=== PATIENT | male | born 1980 | race Caucasian/White ===

== ENCOUNTER 2017-08-09 16:11 | Inpatient (IN) | payer OTHER ==
[2017-08-09 18:19] LABS: ADD MAN DIFF? NO
[2017-08-09 18:21] LABS: BASO % 0 % (0-3); EOS # 0.2 x10^3/uL (0.0-0.7); EOS % 2 % (0-3); HEMATOCRIT 50.4 % (39.0-53.0); HEMOGLOBIN 17.9 g/dL (13.0-17.5); LYMPH # 2.1 x10^3/uL (1.0-4.8); LYMPH % 18 % (24-48); MEAN CORPUSCULAR HEMOGLOBIN 31 pg (25-35); MEAN CORPUSCULAR HGB CONC 36 g/dL (31-37); MEAN CORPUSCULAR VOLUME 88 fL (79-100); MONO # 0.5 x10^3/uL (0.0-1.1); MONO % 4 % (0-9); NEUT # 9.1 x10^3uL (1.8-7.7); NEUT % 76 % (31-73); PLATELET COUNT 290 x10^3/uL (140-400); RED BLOOD COUNT 5.74 x10^6/uL (4.30-5.70); RED CELL DISTRIBUTION WIDTH 13.8 % (11.5-14.5); WHITE BLOOD COUNT 11.9 x10^3/uL (4.0-11.0)
[2017-08-09 18:45] LABS: ALBUMIN 3.4 g/dL (3.4-5.0); ALK PHOS 114 U/L (46-116); ALT (SGPT) 33 U/L (16-63); ANION GAP 11 (6-14); AST (SGOT) 17 U/L (15-37); BLOOD UREA NITROGEN 9 mg/dL (8-26); CALCIUM 9.4 mg/dL (8.5-10.1); CARBON DIOXIDE 24 mmol/L (21-32); CHLORIDE 103 mmol/L (98-107); CKMB INDEX 0.3 % (0-4); CKMB MASS 1.2 ng/mL (0.0-3.6); CREATINE KINASE 422 U/L (39-308); CREATININE 1.1 mg/dL (0.7-1.3); DIRECT BILIRUBIN 0.1 mg/dL (0.0-0.2); GFR 74.5; GLUCOSE 175 mg/dL (70-99); SODIUM 138 mmol/L (136-145); TOTAL BILIRUBIN 0.4 mg/dL (0.2-1.0); TOTAL PROTEIN 7.3 g/dL (6.4-8.2)
[2017-08-09 18:48] LABS: POTASSIUM 1.5 mmol/L (3.5-5.1)
[2017-08-09] MEDS: POTASSIUM CHLORIDE 40 MEQ in IV NORMAL SALINE 500ML BAG 500 ML IV ×2 (19:08→23:38)
[2017-08-09] MEDS: POTASSIUM CHLORIDE 20 MEQ TABLET.ER. PO (19:16)
[2017-08-09] MEDS ORDERED: ONDANSETRON PF 4 MG/2 ML VIAL. IV (19:30)
[2017-08-09 20:19] LABS: BILIRUBIN,URINE NEGATIVE (NEG); CLARITY,URINE CLEAR; GLUCOSE,URINE NEGATIVE (NEG); NITRITE,URINE NEGATIVE (NEG); PROTEIN,URINE NEGATIVE (NEG-TRACE); UROBILINOGEN,URINE 0.2 mg/dL (0.2 mg/dL)
[2017-08-09 20:24] LABS: COLOR,URINE STRAW
[2017-08-09 20:25] LABS: RBC,URINE 0 /HPF (0-2)
[2017-08-09 20:26] LABS: BACTERIA,URINE 0 /HPF (0-FEW); SQUAMOUS EPITHELIAL CELL,UR OCC /LPF; WBC,URINE 0 /HPF (0-4)
[2017-08-09 20:29] LABS: AMPHETAMINE/METHAMPHETAMINE NEG (NEG); BARBITURATES NEG (NEG); BENZODIAZEPINES NEG (NEG); CANNABINOIDS NEG (NEG); COCAINE NEG (NEG); ETHANOL, URINE NEG (NEG); METHADONE NEG (NEG); OPIATES NEG (NEG); PHENCYCLIDINE NEG (NEG)
[2017-08-09] MEDS ORDERED: DEXTROSE 50% 25 GM / 50ML DISP.SYRIN. IV (21:00)
[2017-08-09] MEDS ORDERED: POTASSIUM CHLORIDE 20 MEQ TABLET.ER. PO ×2 (21:00→21:30)
[2017-08-09] MEDS ORDERED: NICOTINE POLACRILEX 2MG GUM PACKAGE of 12. BC (21:30)
[2017-08-09] MEDS ORDERED: ZOLPIDEM 5 MG TABLET. PO (21:30)
[2017-08-09] MEDS: MAGNESIUM SULFATE 2GM 50 ML IV (22:13)
[2017-08-09 23:42] LABS: TROPONINI 0.182 ng/mL (0.000-0.055)
[2017-08-10] MEDS: ASPIRIN 325 MG TABLET PO (00:10)
[2017-08-10] MEDS: POTASSIUM CHLORIDE 20 MEQ/15 ML ORAL LIQUID. PO ×2 (00:11→01:24)
[2017-08-10 05:27] LABS: ADD MAN DIFF? NO
[2017-08-10 05:37] LABS: BASO % 0 % (0-3); EOS # 0.2 x10^3/uL (0.0-0.7); EOS % 2 % (0-3); HEMOGLOBIN 15.5 g/dL (13.0-17.5); LYMPH # 2.7 x10^3/uL (1.0-4.8); LYMPH % 22 % (24-48); MEAN CORPUSCULAR HEMOGLOBIN 31 pg (25-35); MEAN CORPUSCULAR HGB CONC 35 g/dL (31-37); MEAN CORPUSCULAR VOLUME 88 fL (79-100); MONO # 0.7 x10^3/uL (0.0-1.1); MONO % 6 % (0-9); NEUT # 8.5 x10^3uL (1.8-7.7); NEUT % 70 % (31-73); PLATELET COUNT 270 x10^3/uL (140-400); RED BLOOD COUNT 5.02 x10^6/uL (4.30-5.70); RED CELL DISTRIBUTION WIDTH 13.8 % (11.5-14.5); WHITE BLOOD COUNT 12.1 x10^3/uL (4.0-11.0)
[2017-08-10 06:19] LABS: ANION GAP 8 (6-14); BLOOD UREA NITROGEN 7 mg/dL (8-26); CALCIUM 8.3 mg/dL (8.5-10.1); CARBON DIOXIDE 27 mmol/L (21-32); CHLORIDE 106 mmol/L (98-107); CHOLESTEROL 174 mg/dL (0-200); GFR 83.2; GLUCOSE 92 mg/dL (70-99); HDLC 38 mg/dL (40-60); LDLC 116 mg/dL (0-100); NON-HDL CHOLESTEROL 136 mg/dL (0-129); SODIUM 141 mmol/L (136-145); TRIGLYCERIDES 100 mg/dL (0-150); VLDLC 20 mg/dL (0-40)
[2017-08-10 06:20] LABS: CHOLESTEROL/HDL RATIO 4.6
[2017-08-10 06:22] LABS: POTASSIUM 1.9 mmol/L (3.5-5.1)
[2017-08-10 06:35] LABS: TROPONINI 0.218 ng/mL (0.000-0.055)
[2017-08-10] MEDS ORDERED: LOPERAMIDE 2 MG CAPSULE PO (07:45)
[2017-08-10] MEDS ORDERED: INSULIN LISPRO 300 UNITS/3 ML INSULN.PEN. SQ (08:00)
[2017-08-10] MEDS ORDERED: POTASSIUM CHLORIDE 20 MEQ TABLET.ER. PO (08:00)
[2017-08-10 08:23] LABS: VITAMIN-B12 228 pg/mL (247-911)
[2017-08-10 08:23] LABS: FOLATE 3.61 ng/ml (3.2-20.0)
[2017-08-10 08:52] LABS: MAGNESIUM 2.2 mg/dL (1.8-2.4)
[2017-08-10] MEDS: POTASSIUM CHLORIDE 20 MEQ TABLET.ER. PO ×5 (10:18→17:51)
[2017-08-10] MEDS: POTASSIUM CL 40MEQ D5-0.45NACL 1,000 ML IV ×2 (10:24→20:34)
[2017-08-10 13:39] LABS: POTASSIUM 2.7 mmol/L (3.5-5.1)
[2017-08-10 14:32] LABS: HEMOGLOBIN A1C 4.9 % (4.8-5.6)
[2017-08-10 14:32] LABS: MRSA BY PCR Negative (Negative)
[2017-08-10] MEDS: POTASSIUM CHLORIDE 10 MEQ TABLET.ER. PO (15:21)
[2017-08-10 22:15] LABS: SODIUM, URINE <60 mmol/L (Not Estab.); UR POTASSIUM 5.3 mmol/L (Not Estab.)
[2017-08-10 22:33] LABS: POC GLUCOSE 115 mg/dL (70-99)
[2017-08-10 23:12] LABS: C DIFF BY PCR Negative (Negative)
[2017-08-11] MEDS: POTASSIUM CL 40MEQ D5-0.45NACL 1,000 ML IV ×3 (06:56→20:19)
[2017-08-11 07:22] LABS: ANION GAP 12 (6-14); BLOOD UREA NITROGEN 6 mg/dL (8-26); CALCIUM 7.5 mg/dL (8.5-10.1); CARBON DIOXIDE 21 mmol/L (21-32); CHLORIDE 109 mmol/L (98-107); CREATININE 0.9 mg/dL (0.7-1.3); GFR 93.9; GLUCOSE 89 mg/dL (70-99); POTASSIUM 3.5 mmol/L (3.5-5.1); SODIUM 142 mmol/L (136-145)
[2017-08-11] MEDS: NICOTINE 21MG PATCH. TD (08:02)
[2017-08-11] MEDS: POTASSIUM CHLORIDE 20 MEQ TABLET.ER. PO ×3 (08:02→17:29)
[2017-08-11] MEDS ORDERED: ACETAMINOPHEN 500 MG TABLET PO (16:00)
[2017-08-11] MEDS ORDERED: ONDANSETRON ODT 4 MG TAB.RAPDIS. PO (16:00)
[2017-08-11] MEDS ORDERED: ONDANSETRON PF 4 MG/2 ML VIAL. IV (16:00)
[2017-08-11] MEDS ORDERED: diphenhydrAMINE HCL 25 MG CAPSULE PO (16:00)
[2017-08-11] MEDS ORDERED: IBUPROFEN 600 MG TABLET. PO (16:00)
[2017-08-12 06:46] LABS: ANION GAP 8 (6-14); BLOOD UREA NITROGEN 3 mg/dL (8-26); CALCIUM 7.8 mg/dL (8.5-10.1); CARBON DIOXIDE 26 mmol/L (21-32); CHLORIDE 109 mmol/L (98-107); CREATININE 0.9 mg/dL (0.7-1.3); GFR 93.9; GLUCOSE 81 mg/dL (70-99); MAGNESIUM 2.1 mg/dL (1.8-2.4); PHOSPHORUS 3.8 mg/dL (2.6-4.7); POTASSIUM 4.2 mmol/L (3.5-5.1); SODIUM 143 mmol/L (136-145)
[2017-08-12] MEDS: POTASSIUM CHLORIDE 20 MEQ TABLET.ER. PO (08:39)
[2017-08-12] MEDS: POTASSIUM CL 40MEQ D5-0.45NACL 1,000 ML IV (08:41)
== END 2017-08-12 10:33 | disposition home or self-care (01) | DRG 392 ==
LOC: ER 16:11 → 5 SOUTH 08-11 12:14 → 1 WEST ICU 18:05
DX: K90.9 Intestinal malabsorption, unspecified (principal); D72.829 Elevated white blood cell count, unspecified; E87.6 Hypokalemia; K52.9 Noninfective gastroenteritis and colitis, unspecified; F12.90 Cannabis use, unspecified, uncomplicated; F17.210 Nicotine dependence, cigarettes, uncomplicated; R73.9 Hyperglycemia, unspecified
CPT/HCPCS: 36415; 80048; 80061; 80076; 80307; 81001; 82436; 82553; 82607; 82746; 82962; 83036; 83735; 84100; 84132; 84133; 84300; 84443; 84484; 85025; 87045; 87205; 87324; 87641; 93005; 93306; J1650; J3475; J7040; J7042